=== PATIENT | female | born 1970 | race Caucasian/White ===

== ENCOUNTER 2018-04-02 06:58 | Observation (INO) ==
--- NOTE | 2018-04-02 07:35 | ED ---
HPI General Chief complaint: Skin/Abscess/Foreign Body Stated complaint: FOB rt foot x 1 week Time Seen by Provider: 04/02/18 07:22 Source: patient Mode of arrival: ambulatory Limitations: no limitations History of Present Illness HPI narrative: Patient has history of sewing needle penetrating heel. Patient seen at [facility] emergency department and referred to podiatry. Podiatry tied to remove it at office and failed. Patient referred here for admission and same- day surgery to do it in the operating room with fluoroscopy. Patient increased swelling and discomfort but no chills or fever. Generally good health with no significant medical problems. Related Data Home Medications Medication Instructions Recorded Confirmed No Known Home Medications 04/02/18 04/02/18 Allergies Allergy/AdvReac Type Severity Reaction Status Date / Time No Known Allergies Allergy Verified 04/02/18 07:17 Review of Systems ROS: all other systems reviewed are negative [facility] Surgical History Surgical History H/O lumpectomy (Acute) History of back surgery (Acute) History of ear surgery (Acute) History of herniorrhaphy (Acute) Hx of tonsillectomy (Acute) Previous section (Acute) Social History Social History Second Hand Smoke Exposure: No Smoking Status: Former smoker How Often Do You Have a Drink Containing Alcohol: Never Recent Travel in [facility] within the Last 8 Weeks: No Recent Out of Country Travel within the Last 8 Weeks: No Immunization History Tetanus Immunization: <5 Years Exam Narrative Exam Narrative: GENERAL: Alert and oriented SKIN: Focused skin assessment warm/dry. Puncture wound with surrounding erythema and swelling; to right heel. CARDIOVASCULAR: Regular rate and rhythm. No murmur appreciated. RESPIRATORY: No accessory muscle use. Clear to auscultation. Breath sounds equal bilaterally. GASTROINTESTINAL: Abdomen soft, non-tender, nondistended. Hepatic and splenic margins not palpable. MUSCULOSKELETAL: No obvious deformities. No clubbing. No cyanosis. Patient has laceration over puncture wound to right heel with surrounding erythema and cellulitis approximately 7 cm in diameter. Also patient has early lymphangitis with streak above the heel with a length of 7 cm. No popliteal or inguinal adenopathy or tenderness. NEUROLOGICAL: Awake and alert. No obvious cranial nerve deficits. Motor grossly within normal limits. Normal speech. PSYCHIATRIC: Appropriate mood and affect; insight and judgment normal. Course Initial Documented Vital Signs Temperature 98.8 F 04/02/18 07:04 Pulse Rate 89 04/02/18 07:04 Respiratory Rate 18 04/02/18 07:04 Blood Pressure 135/66 04/02/18 07:04 Pulse Oximetry 100 04/02/18 07:04 Last Documented Vital Signs Temperature 98.8 F 04/02/18 07:04 Pulse Rate 89 04/02/18 07:04 Respiratory Rate 18 04/02/18 07:04 Blood Pressure 135/66 04/02/18 07:04 Pulse Oximetry 100 04/02/18 07:04 Critical Care Time Critical Care Time: No Medical Decision Making MDM Narrative Medical decision making narrative: Patient has foreign body of several days' duration with cellulitis and early lymphangitis. Patient admitted for antibiotics and fluoroscopy to remove foreign body in the operating room. Patient generally good health with no significant medical problems Medical Screen Exam Complete: Yes Emergency Medical Condition: Yes Discharge Plan Physicians Team ED Provider: Fredy Conteh Rxs /Orders / Referrals /Forms Prescriptions: No Action No Known Home Medications RF: 0 Status ED Status: With Doctor
[2018-04-02] MEDS ORDERED: Ketorolac Inj 30 MG/ML (IVP) Vial IV.PUSH ONE (08:44)
[2018-04-02] MEDS ORDERED: Bisacodyl 10 MG Supp RECTAL PRN (09:29)
[2018-04-02] MEDS ORDERED: Acetaminophen 325 MG Tablet PO PRN (09:29)
[2018-04-02] MEDS ORDERED: Temazepam 15 MG Capsule PO PRN (09:29)
--- NOTE | 2018-04-02 09:45 | P.HP ---
History of Present Illness Service: [facility] hospitalist Primary Care Physician: Al Moon Chief Complaint: sent by podiatry for foreign body foot with cellulitis History of Present Illness: HPI narrative: Patient has history of sewing needle penetrating RT heel. Patient seen at [facility] emergency department and referred to podiatry. Podiatry tied to remove it at office and failed. Patient referred here by podiatry for admission and same-day surgery to do it in the operating room with fluoroscopy. Patient increased swelling and discomfort but no chills or fever. Generally good health with no significant medical problems. Patient did have several attempts to remove needle without success ,will start on IV antibiotics rocephin ,clindamycin and consult podiatry. Obtain xray and lab work. Related Data - Diagnosis (1) Cellulitis Review of Systems All other systems reviewed negative except as stated in HPI (foot pain red and swelling rt ) PMF - History History Provided By: Patient - Surgical History Surgical History: Surgical History (Last Reviewed 04/02/18 @ 07:31 by Fredy Conteh MD) H/O lumpectomy History of back surgery History of ear surgery History of herniorrhaphy Hx of tonsillectomy Previous section - Tobacco History Second Hand Smoke Exposure: No Tobacco Use In Past 30 Days: No Smoking Status: Former smoker - Alcohol History How Often Do You Have a Drink Containing Alcohol: Never - Travel History Recent Travel in the [place] Within the Last 8 Weeks: No Recent Travel Out of the Country Within the Last 8 Weeks: No - Immunization History Tetanus Immunization: <5 Years Medications and Allergies Active Medications: Active Medications Acetaminophen (Tylenol) 650 mg PO Q4H PRN PRN Reason: Temp > 100.4 Al Hydroxide/Mg Hydroxide (Milk Of Magnesia Liq) 30 ml PO Q12H PRN PRN Reason: Mild Constipation Bisacodyl (Dulcolax Supp) 10 mg RECTAL DAILY PRN PRN Reason: SEVERE CONSITIPATION Clindamycin/Sodium Chloride (Cleocin 600 Mg/Ns Premix) 600 mg in 50 mls @ 100 mls/hr IV.SIG Q8H CARISA Stop: 04/03/18 02:05 Ceftriaxone Sodium 1,000 mg/ (Sodium Chloride) 100 mls @ 200 mls/hr IV.SIG Q24H CARISA Lactulose (Lactulose Liq) 30 ml PO DAILY PRN PRN Reason: SEVERE CONSITIPATION Morphine Sulfate (Morphine Inj) 2 mg IV.PUSH Q4H PRN PRN Reason: PAIN SCALE 7 TO 10 SEVERE Ondansetron HCl (Zofran Inj) 4 mg IV.PUSH Q6H PRN PRN Reason: NAUSEA OR VOMITING Senna/Docusate Sodium (Rolanda-Colace) 1 tab PO BID CARISA Sennosides (Senokot) 17.2 mg PO Q12H PRN PRN Reason: Moderate Constipation Temazepam (Restoril) 15 mg PO HS PRN PRN Reason: INSOMNIA Allergies Allergy/AdvReac Type Severity Reaction Status Date / Time No Known Allergies Allergy Verified 04/02/18 07:17 Home Medications Medication Instructions Recorded Confirmed Type No Known Home Medications 04/02/18 04/02/18 History Exam Vital signs: Vital Signs 04/02/18 07:04 04/02/18 09:36 Temperature 98.8 F Pulse Rate 89 83 Respiratory Rate 18 18 Blood Pressure 135/66 129/78 Pulse Oximetry 100 100 Intake & Output 04/01/18 04/02/18 04/02/18 18:59 06:59 18:59 Weight 83.5 kg Narrative: GENERAL: SKIN: Warm and dry. HEAD: Normocephalic. EYES: No scleral icterus. No injection or drainage. NECK: Supple, trachea midline. No JVD or lymphadenopathy. CARDIOVASCULAR: Regular rate and rhythm without murmurs, gallops, or rubs. RESPIRATORY: Breath sounds equal bilaterally. No accessory muscle use. GASTROINTESTINAL: Abdomen soft, non-tender, nondistended. MUSCULOSKELETAL: No cyanosis, or edema. rt heel red erythema tender swelling BACK: Nontender without obvious deformity. No CVA tenderness. Caprini VTE Risk Assessment Caprini VTE Risk Assessment: No/Low Risk (score <= 1) Caprini Risk Assessment Model: Point Value = 1 Point Value = 2 Point Value = 3 Point Value = 5 Age 41-60 Minor surgery BMI > 25 kg/m2 Swollen legs Varicose veins or History of unexplained or recurrent spontaneous Oral contraceptives or hormone replacement Sepsis (< 1 month) Serious lung disease, including pneumonia (< 1 month) Abnormal pulmonary function Acute myocardial infarction Congestive heart failure (< 1 month) History of inflammatory bowel disease Medical patient at bed rest Age 61-74 Arthroscopic surgery Major open surgery (> 45 min) Laparoscopic surgery (> 45 min) Malignancy Confined to bed (> 72 hours) Immobilizing plaster cast Central venous access Age >= 75 History of VTE Family history of VTE Factor V Leiden Prothrombin [id number] Lupus anticoagulant Anticardiolipin antibodies Elevated serum homocysteine Heparin-induced thrombocytopenia Other congenital or acquired thrombophilia Stroke (< 1 month) Elective arthroplasty Hip, pelvis, or leg fracture Acute spinal cord injury (< 1 month) Prophylaxis Regimen: Total Risk Factor Score Risk Level Prophylaxis Regimen 0-1 Low Early ambulation 2 Moderate Order ONE of the following: *Sequential Compression Device (SCD) *Heparin 5000 units SQ BID 3-4 Higher Order ONE of the following medications: *Heparin 5000 units SQ TID *Enoxaparin/Lovenox 40 mg SQ daily (WT < 150 kg, CrCl > 30 mL/min) *Enoxaparin/Lovenox 30 mg SQ daily (WT < 150 kg, CrCl > 10-29 mL/min) *Enoxaparin/Lovenox 30 mg SQ BID (WT < 150 kg, CrCl > 30 mL/min) AND/OR *Sequential Compression Device (SCD) 5 or more Highest Order ONE of the following medications: *Heparin 5000 units SQ TID (Preferred with Epidurals) *Enoxaparin/Lovenox 40 mg SQ daily (WT < 150 kg, CrCl > 30 mL/min) *Enoxaparin/Lovenox 30 mg SQ daily (WT < 150 kg, CrCl > 10-29 mL/min) *Enoxaparin/Lovenox 30 mg SQ BID (WT < 150 kg, CrCl > 30 mL/min) AND *Sequential Compression Device (SCD) Assessment and Plan - Assessment (1) Cellulitis Code(s): L03.90 - Cellulitis, unspecified Status: Acute Plan: cellulitis and foreign body rt heel xray antibiotics consult podiatry - Plan as above Code Status: full Discussed Condition With: patient
[2018-04-02 10:30] LABS: Hematocrit 37.6 % (35.0-46.0); Hemoglobin 12.7 gm/dL (11.6-15.3); Mean Corpuscular HGB Conc 33.7 % (32.0-36.0); Mean Corpuscular Hemoglobin 28.4 pg (27.0-34.0); Mean Corpuscular Volume 84.3 fL (80.0-100.0); Mean Platelet Volume 9.6 fL (7.0-11.0); Platelet Count 270 th/mm3 (150-450); Red Blood Count 4.46 mil/mm3 (4.00-5.30); Red Cell Distribution Width 14.2 % (11.6-17.2); White Blood Count 9.2 th/mm3 (4.0-11.0)
[2018-04-02 10:37] LABS: Chloride 107 meq/L (98-107); Potassium 3.7 meq/L (3.5-5.1); Sodium 140 meq/L (136-145)
[2018-04-02 10:40] LABS: Prothrombin Time 10.3 sec (9.8-11.6)
[2018-04-02 10:41] LABS: Albumin 3.7 g/dL (3.4-5.0); Anion Gap 11 meq/L (5-15); Blood Urea Nitrogen 11 mg/dL (7-18); Calcium 7.9 mg/dL (8.5-10.1); Carbon Dioxide 22.2 meq/L (21.0-32.0); Glucose,Random 94 mg/dL (74-106)
[2018-04-02 10:44] LABS: Alanine Aminotransferase 13 U/L (10-53); Aspartate Aminotransferase 18 U/L (15-37); Glomerular Filtration Rate 68 mL/min (>89)
[2018-04-02 10:46] LABS: Total Protein 7.2 g/dL (6.4-8.2)
[2018-04-02 10:47] LABS: Alkaline Phosphatase 123 U/L (45-117)
[2018-04-02] MEDS: Morphine Sulfate Inj 2 MG/ML Vial IV.PUSH PRN ×3 (11:34→20:48)
[2018-04-02] MEDS: Clindamycin 600 mg/NS Premix 600 MG/50 ML PIGGYBACK IV.SIG SCH ×2 (12:23→20:49)
--- NOTE | 2018-04-02 13:03 | ECG ---
Date Performed: 04/02/2018 Time Performed: 10:13:11 PTAGE: 47 years EKG: Sinus rhythm NONSPECIFIC T-WAVE ABNORMALITY BORDERLINE ECG NO PREVIOUS TRACING DOCTOR: Tremaine Harrell Interpretating Date/Time 04/02/2018 13:01:53
--- NOTE | 2018-04-02 15:52 | XR ---
EXAM DATE: 04/02/2018 12:00 AM EDT AGE/SEX: 47 years / Female INDICATIONS: Foreign body. CLINICAL DATA: This is the patient's initial encounter. Patient reports that signs and symptoms have been present for 1 week and indicates a pain score of 7/10. MEDICAL/SURGICAL HISTORY: None. None. COMPARISON: No prior exams available for comparison. FINDINGS: There is a small linear metallic foreign body in the soft tissues along the plantar surface of the he el. This foreign body measures approximately 1 cm in length. The bony structures are grossly intact. CONCLUSION: 1 cm linear foreign body in the soft tissues along the plantar surface of the heel. Electronically signed by: Jamil Lobato MD 04/02/2018 3:51 PM EDT
--- NOTE | 2018-04-02 16:20 | P.CON ---
History of Present Illness Service: Podiatry Consult date: 04/02/18 Primary Care Provider: Al Moon Chief Complaint: sent by podiatry for foreign body foot with cellulitis History of Present Illness: Podiatry consulted for this 47-year-old patient who states a week ago she had a sewing needle penetrate her right heel. She was seen at the emergency department in outside hospital and referred to podiatry. Payroll Clerk tried to remove it in the office and failed therefore patient is here for admission for foreign body retrieval. Patient states that there is increased swelling and redness as well as discomfort. She denies any nausea vomiting fevers or chills she has no significant medical health issues. Review of Systems No: All other systems reviewed negative except as stated in HPI Constitutional: Denies anorexia, Denies chills, Denies fatigue, Denies fever(s) , Denies night sweats, Denies weakness, Denies weight loss PMFSH - History History Provided By: Patient - Surgical History Surgical History: Surgical History (Last Reviewed 04/02/18 @ 16:19 by Dulce Bronson DPM) H/O lumpectomy History of back surgery History of ear surgery History of herniorrhaphy Hx of tonsillectomy Previous section - Tobacco History Second Hand Smoke Exposure: No Tobacco Use In Past 30 Days: No Smoking Status: Never smoker - Alcohol History How Often Do You Have a Drink Containing Alcohol: Never - Substance Use History Substance History: No History of Abuse - Travel History Recent Travel in the [place] Within the Last 8 Weeks: No Recent Travel Out of the Country Within the Last 8 Weeks: No - Immunization History Tetanus Immunization: <5 Years Tetanus Immunization Year if Known: 2018 Medications and Allergies Active Medications: Active Medications Acetaminophen (Tylenol) 650 mg PO Q4H PRN PRN Reason: Temp > 100.4 Last Admin: 04/02/18 10:42 Dose: 650 mg Al Hydroxide/Mg Hydroxide (Milk Of Magnesia Liq) 30 ml PO Q12H PRN PRN Reason: Mild Constipation Bisacodyl (Dulcolax Supp) 10 mg RECTAL DAILY PRN PRN Reason: SEVERE CONSITIPATION Clindamycin/Sodium Chloride (Cleocin 600 Mg/Ns Premix) 600 mg in 50 mls @ 100 mls/hr IV.SIG Q8H CARISA Stop: 04/03/18 04:29 Last Infusion: 04/02/18 12:54 Dose: Infused Ceftriaxone Sodium 1,000 mg/ (Sodium Chloride) 100 mls @ 200 mls/hr IV.SIG Q24H CARISA Last Infusion: 04/02/18 10:32 Dose: Infused Lactulose (Lactulose Liq) 30 ml PO DAILY PRN PRN Reason: SEVERE CONSITIPATION Morphine Sulfate (Morphine Inj) 2 mg IV.PUSH Q4H PRN PRN Reason: PAIN SCALE 7 TO 10 SEVERE Last Admin: 04/02/18 16:00 Dose: 2 mg Ondansetron HCl (Zofran Inj) 4 mg IV.PUSH Q6H PRN PRN Reason: NAUSEA OR VOMITING Senna/Docusate Sodium (Rolanda-Colace) 1 tab PO BID CARISA Sennosides (Senokot) 17.2 mg PO Q12H PRN PRN Reason: Moderate Constipation Temazepam (Restoril) 15 mg PO HS PRN PRN Reason: INSOMNIA Allergies Allergy/AdvReac Type Severity Reaction Status Date / Time No Known Allergies Allergy Verified 04/02/18 07:17 Home Medications Medication Instructions Recorded Confirmed Type No Known Home Medications 04/02/18 04/02/18 History Physical Exam Vital signs: Vital Signs 04/02/18 07:04 04/02/18 09:36 04/02/18 11:10 Temperature 98.8 F Pulse Rate 89 83 Respiratory Rate 18 18 18 Blood Pressure 135/66 129/78 Pulse Oximetry 100 100 04/02/18 11:52 04/02/18 11:57 04/02/18 12:00 Temperature 97.9 F 97.6 F Pulse Rate 76 76 Respiratory Rate 17 16 16 Blood Pressure 115/72 115/72 Pulse Oximetry 99 99 Intake & Output 04/01/18 04/02/18 04/02/18 18:59 06:59 18:59 Intake Total 390 / 390 Balance 390 / 390 Weight 83.5 kg Intake: IV 150 / 150 Cleocin 600 mg/NS Premix 600 mg 50 / 50 In 50 ml @ 100 mls/hr IV.SIG Q8H CARISA Rx#:[id number] Rocephin Inj 1,000 MG In NS Inj 100 / 100 100 ML @ 200 mls/hr IV.SIG Q24H CARISA Rx#:[id number] Oral 240 / 240 Other: # Voids 1 Narrative: Lower extremity physical exam: Vascular: Dorsalis pedis 2/4, posterior tibial 2/4. Capillary refill time within normal limits to digits X5 bilateral foot. Edema present to right heel Neuro: Gross sensation intact to bilateral lower extremity. Pinpoint sensation intact. No hyperalgesia noted to bilateral lower extremity Dermatology: Increased erythema and edema noted to right heel with serous drainage noted incision noted to plantar medial heel Musculoskeletal: Tender to palpation to right heel. GENERAL: This is a well-nourished, well-developed patient, in no apparent distress. SKIN: Increased redness and erythema noted to plantar heel with open lesion HEAD: Atraumatic. EYES: Pupils equal round and reactive. ENT: Airway patent. NECK: Trachea midline. RESPIRATORY: Nonlabored breathing. MUSCULOSKELETAL:. Negative Homans sign bilaterally. NEUROLOGICAL: Awake and alert. Normal speech.
[2018-04-02] MEDS: Senna/Docusate Sodium 8.6/50 MG Tablet PO SCH (20:47)
[2018-04-03] MEDS: Clindamycin 600 mg/NS Premix 600 MG/50 ML PIGGYBACK IV.SIG SCH (04:17)
[2018-04-03] MEDS: Morphine Sulfate Inj 2 MG/ML Vial IV.PUSH PRN ×2 (04:21→11:42)
[2018-04-03 07:51] VITALS: RESP 16
[2018-04-03] MEDS ORDERED: Chlorhexidine Gluconate 2% 1 Pack (2 Cloths) TOPICAL ONE (07:59)
[2018-04-03] MEDS ORDERED: Metoprolol Tartrate 25 MG Tablet PO ONE (07:59)
[2018-04-03] MEDS ORDERED: Sodium Chlor 0.9% Inj 500 ML IV.SIG SCH (08:00)
[2018-04-03] MEDS ORDERED: Bupivacaine PF 0.5% Inj 30 ML Vial ONE (08:01)
[2018-04-03] MEDS ORDERED: Lidocaine PF 1% Inj 30 ML Vial ONE (08:01)
[2018-04-03] MEDS ORDERED: fentaNYL Citrate Inj 100 MCG/2 ML Ampul ONE (08:20)
--- NOTE | 2018-04-03 08:27 | P.PNPOD ---
Subjective Interval history: Patient seen in preop. Agrees with planned procedure. No concerns. Denies any N, F,CH,V. Physical Exam Vital signs: Vital Signs 04/02/18 09:36 04/02/18 11:10 04/02/18 11:52 Temperature Pulse Rate 83 Respiratory Rate 18 18 17 Blood Pressure 129/78 Pulse Oximetry 100 04/02/18 11:57 04/02/18 12:00 04/02/18 16:00 Temperature 97.9 F 97.6 F 98.0 F Pulse Rate 76 76 72 Respiratory Rate 16 16 16 Blood Pressure 115/72 115/72 134/71 Pulse Oximetry 99 99 99 04/02/18 20:00 04/03/18 00:00 04/03/18 04:00 Temperature 99.1 F 97.6 F 98 F Pulse Rate 89 80 78 Respiratory Rate 20 20 20 Blood Pressure 113/59 L 117/65 116/67 Pulse Oximetry 99 98 99 04/03/18 07:46 Temperature 98.4 F Pulse Rate 75 Respiratory Rate 16 Blood Pressure 117/75 Pulse Oximetry 99 Intake & Output 04/02/18 04/03/18 04/03/18 18:59 06:59 18:59 Intake Total 1110 / 1110 100 / 100 Balance 1110 / 1110 100 / 100 Weight 83.5 kg 83.4 kg Intake: IV 150 / 150 100 / 100 Cleocin 600 mg/NS Premix 600 mg 50 / 50 100 / 100 In 50 ml @ 100 mls/hr IV.SIG Q8H CARISA Rx#:[id number] Rocephin Inj 1,000 MG In NS Inj 100 / 100 100 ML @ 200 mls/hr IV.SIG Q24H CARISA Rx#:[id number] Oral 960 / 960 0 / 0 Other: # Voids 4 2 # Bowel Movements 0 Narrative: Dressing intact to right foot Medications and Allergies Active Medications: Active Medications Acetaminophen (Tylenol) 650 mg PO Q4H PRN PRN Reason: Temp > 100.4 Last Admin: 04/02/18 10:42 Dose: 650 mg Al Hydroxide/Mg Hydroxide (Milk Of Magnesia Liq) 30 ml PO Q12H PRN PRN Reason: Mild Constipation Bisacodyl (Dulcolax Supp) 10 mg RECTAL DAILY PRN PRN Reason: SEVERE CONSITIPATION Ceftriaxone Sodium 1,000 mg/ (Sodium Chloride) 100 mls @ 200 mls/hr IV.SIG Q24H CARISA Last Infusion: 04/02/18 10:32 Dose: Infused Lactated Ringer's (Lr 1000 Ml Inj) 1,000 mls @ 30 mls/hr IV.SIG .Q24H CARISA Stop: 04/04/18 07:59 Sodium Chloride (Ns Inj) 500 mls @ 30 mls/hr IV.SIG .Q10H CARISA Lactulose (Lactulose Liq) 30 ml PO DAILY PRN PRN Reason: SEVERE CONSITIPATION Morphine Sulfate (Morphine Inj) 2 mg IV.PUSH Q4H PRN PRN Reason: PAIN SCALE 7 TO 10 SEVERE Last Admin: 04/03/18 04:21 Dose: 2 mg Ondansetron HCl (Zofran Inj) 4 mg IV.PUSH Q6H PRN PRN Reason: NAUSEA OR VOMITING Senna/Docusate Sodium (Rolanda-Colace) 1 tab PO BID CARISA Last Admin: 04/02/18 20:47 Dose: Not Given Sennosides (Senokot) 17.2 mg PO Q12H PRN PRN Reason: Moderate Constipation Temazepam (Restoril) 15 mg PO HS PRN PRN Reason: INSOMNIA Last Admin: 04/02/18 23:52 Dose: 15 mg Allergies Allergy/AdvReac Type Severity Reaction Status Date / Time No Known Allergies Allergy Verified 04/03/18 07:53 Home Medications Medication Instructions Recorded Confirmed Type ergocalciferol (vitamin D2) 50,000 unit PO QWEEK 04/03/18 04/03/18 History [Vitamin D2] Results - Labs CBC & Chem 7: 04/02/18 09:30 04/02/18 09:30 Laboratory Results - last 24 hr 04/02/18 04/02/18 04/02/18 09:30 09:30 09:30 WBC 9.2 RBC 4.46 Hgb 12.7 Hct 37.6 MCV 84.3 MCH 28.4 MCHC 33.7 RDW 14.2 Plt Count 270 MPV 9.6 PT 10.3 INR 1.0 Sodium 140 Potassium 3.7 Chloride 107 Carbon Dioxide 22.2 Anion Gap 11 BUN 11 Creatinine 0.88 Estimated GFR 68 L Random Glucose 94 Calcium 7.9 L Total Bilirubin 0.4 AST 18 ALT 13 Alkaline Phosphatase 123 H Total Protein 7.2 Albumin 3.7 - Imaging Impressions Foot X-Ray 04/02/18 00:00 CONCLUSION: 1 cm linear foreign body in the soft tissues along the plantar surface of the heel. Assessment and Plan - Plan 47 year old female with right foot foreign body to heel Patient examined and evaluated To OR today for right foot foreign body removal She understands all risks, benefits, complications, alternatives OK to be discharged home following post operative monitoring and once patient is recovered and stable Please discharge with 5 days worth of antibiotics Keflex 500mg TID Pain management per hospitalist Non weight bearing to right heel Patient to follow up in 1 week in office
[2018-04-03] MEDS ORDERED: Misc Info for Pharmacy OTHER STA (08:28)
--- NOTE | 2018-04-03 09:04 | P.PCN ---
Date of procedure: 04/03/18 Pre-op diagnosis: right foot foreign body Post-op diagnosis: same Procedure: Right foot foreign body removal Anesthesia: FRANCESCO Surgeon: Dulce Bronson Estimated blood loss (mL): 0 Pathology: none sent Condition: stable Disposition: PACU (with VSS and NVS intact)
[2018-04-03 09:39] VITALS: BP 104/67; PULSE 74; TEMP 98.1; O2SAT 100
--- NOTE | 2018-04-03 09:57 | XR ---
EXAM DATE: 04/03/2018 12:00 AM EDT AGE/SEX: 47 years / Female INDICATIONS: Post op foreign body removal from right foot CLINICAL DATA: This is the patient's subsequent encounter. Patient reports that signs and symptoms h ave been present for 2 days and indicates a pain score of 0/10. MEDICAL/SURGICAL HISTORY: None. Abdominal aortic aneurysm repair. COMPARISON: . FINDINGS: Bony structures are intact and in normal alignment. Osseous density is normal. Soft tissues are unre markable. There is mild spur formation at the Achilles and plantar aponeurosis attachment sites. No radiopaque foreign bodies seen. CONCLUSION: Successful removal of the previously seen metallic foreign body in the heel fat pad. Electronically signed by: Sagar Christy MD 04/03/2018 9:56 AM EDT
[2018-04-03] MEDS: Senna/Docusate Sodium 8.6/50 MG Tablet PO SCH (10:08)
--- NOTE | 2018-04-03 11:02 | P.DS ---
Date of admission: 04/02/18 09:20 Primary care physician: Al Moon Attending physician on discharge: Michael Grijalva Anticipated date of discharge: 04/03/18 Brief History from admission: HPI narrative: Patient has history of sewing needle penetrating RT heel. Patient seen at [facility] emergency department and referred to podiatry. Podiatry tied to remove it at office and failed. Patient referred here by podiatry for admission and same-day surgery to do it in the operating room with fluoroscopy. Patient increased swelling and discomfort but no chills or fever. Generally good health with no significant medical problems. Patient did have several attempts to remove needle without success ,will start on IV antibiotics rocephin ,clindamycin and consult podiatry. Obtain xray and lab work. Related Data DS: Diagnosis - Discharge Diagnosis (1) Cellulitis Status: Acute (2) Foreign body Status: Acute DS: Summary Hospital Course: Patient started on rocephin and clindamycin IV and was taken to surgery to remove foreign body (needle) base of rt foot ,removed without problems by podiatry in OR. Will dischareg today to continue home keflex 500 tid she had already had that prescription and will get tomorrow knee scotter walker for now. Discharge in stable condition. - Time Spent with Patient Total time spent providing and/or coordinating discharge services: Less than 30 minutes - Quality: VTE Deep Vein Thrombosis/Pulmonary Embolism Present on Admission: No Exam Vital signs: Vital Signs 04/02/18 11:10 04/02/18 11:52 04/02/18 11:57 Temperature 97.9 F Pulse Rate 76 Respiratory Rate 18 17 16 Blood Pressure 115/72 Pulse Oximetry 99 04/02/18 12:00 04/02/18 16:00 04/02/18 20:00 Temperature 97.6 F 98.0 F 99.1 F Pulse Rate 76 72 89 Respiratory Rate 16 16 20 Blood Pressure 115/72 134/71 113/59 L Pulse Oximetry 99 99 99 04/03/18 00:00 04/03/18 04:00 04/03/18 07:46 Temperature 97.6 F 98 F 98.4 F Pulse Rate 80 78 75 Respiratory Rate 20 20 16 Blood Pressure 117/65 116/67 117/75 Pulse Oximetry 98 99 99 04/03/18 09:10 04/03/18 09:35 Temperature 97.9 F 98.1 F Pulse Rate 84 72 Respiratory Rate 16 16 Blood Pressure 107/61 104/67 Pulse Oximetry 98 100 Intake & Output 04/02/18 04/03/18 04/03/18 18:59 06:59 18:59 Intake Total 1110 / 1110 100 / 100 300 / 300 Balance 1110 / 1110 100 / 100 300 / 300 Weight 83.5 kg 83.4 kg Intake: IV 150 / 150 100 / 100 300 / 300 Cleocin 600 mg/NS Premix 600 mg 50 / 50 100 / 100 In 50 ml @ 100 mls/hr IV.SIG Q8H CARISA Rx#:[id number] LR 1000 mL Inj 1,000 ML @ 30 300 / 300 mls/hr IV.SIG .Q24H CARISA Rx#: [id number] Rocephin Inj 1,000 MG In NS Inj 100 / 100 100 ML @ 200 mls/hr IV.SIG Q24H CARISA Rx#:[id number] Oral 960 / 960 0 / 0 Other: # Voids 4 2 # Bowel Movements 0 Narrative: GENERAL: SKIN: Warm and dry. Rt foot wrapped in tight rama bandage HEAD: Normocephalic. EYES: No scleral icterus. No injection or drainage. NECK: Supple, trachea midline. No JVD or lymphadenopathy. CARDIOVASCULAR: Regular rate and rhythm without murmurs, gallops, or rubs. RESPIRATORY: Breath sounds equal bilaterally. No accessory muscle use. GASTROINTESTINAL: Abdomen soft, non-tender, nondistended. MUSCULOSKELETAL: No cyanosis, or edema. BACK: Nontender without obvious deformity. No CVA tenderness. Results Procedures completed during hospitalization: removal of foreign body Pending studies at discharge: Pending at discharge 04/03/18 Surgical [PTH] Routine none - Impressions ITS Impressions Foot X-Ray 04/03/18 00:00 CONCLUSION: Successful removal of the previously seen metallic foreign body in the heel fat pad. Discharge Plan - Discharge Disposition Patient Disposition: 01 Discharge Home - Discharge Condition Condition: Good - Discharge Order Discharge Orders: Discharge Order (Routine); Ordered 04/03/18 Ordered By: Michael Grijalva - Discharge Details Anticipated Discharge Date: 04/03/18 - Physicians Team Attending Provider: Michael Grijalva Other Providers: Dulce Bronson DPM
--- NOTE | 2018-04-04 10:29 | MR ---
cc: Dulce Bronson DPM DATE: 04/02/2018 SURGEON: Dulce Bronson DPM. EQUIPMENT RECORDS SUPERVISOR: None. PREOPERATIVE DIAGNOSIS: Right heel foreign body. POSTOPERATIVE DIAGNOSIS: Right heel foreign body. PROCEDURE: Right heel foreign body removal. ANESTHESIA: General. HEMOSTASIS: None. ESTIMATED BLOOD LOSS: None. MATERIALS: 3-0 Prolene. INJECTABLES: 10 mL 0.25% Marcaine plain. COMPLICATIONS: None. INDICATIONS FOR PROCEDURE: The patient is a 47-year-old female who states she stepped on a sewing needle in the house about a week ago. She presented to an outside emergency department, which was unable to retrieve the needle. She presented to [facility]blaster [facility], who was unable to remove the needle as well. Therefore, she presented to the emergency department as there had been increased erythema and edema noted to plantar heel at the site of foreign body penetration. The patient understands all risks, complications, alternatives, and benefits associated with a foreign body retrieval. She would like to proceed with intervention. DESCRIPTION OF PROCEDURE: The patient was brought to the operating room, placed on the operating table in supine position. General anesthesia was then induced. Right foot was prepped and draped in the usual sterile fashion. There was a 1 cm incision present to the right heel. Hemostat was utilized and a foreign body was identified via fluoroscopy. A hemostat was utilized to remove foreign body. Foreign body was removed. There was noted no drainage or purulence upon compression. Fluoroscopy was once again utilized to confirm removal of foreign body. This was confirmed. The site was copiously irrigated with normal saline. 3-0 Prolene was utilized to close skin. Xeroform, Adaptic, Em and Coban were placed to the right foot. The patient tolerated the procedure and anesthesia well. She was transferred from the OR to PACU with vital signs stable and neurovascular status intact. She will remain weightbearing in her postoperative shoe. She is to follow up in 1 week. She is to be discharged with 5 days of oral antibiotics and pain control. JONE Tsai/bam/jenny , 06:17 AM , 06:25 AM
== END 2018-04-03 13:41 | disposition home or self-care (01) ==
LOC: PHEFT 06:58 → PHEDA 06:58 → PH3 10:55
PROVIDERS: ADMIT Internal Medicine; ATTEND Internal Medicine